=== PATIENT | male | born 1945 | race African-American/Black ===

== ENCOUNTER 2021-11-15 13:32 | Inpatient (IN) ==
[2021-11-15] MEDS ORDERED: Naloxone 0.4 MG/ML INJ IVP PRN (17:40)
[2021-11-15 21:15] LABS: BUN/Creatinine Ratio 6 (6-26); Blood Urea Nitrogen 5 mg/dL (8-23); Calcium 8.2 mg/dL (8.6-10.3); Carbon Dioxide 21 mEq/L (23-29); Chloride 88 mEq/L (98-107); Glucose 95 mg/dL (70-105); Osmolality,Calculated 239 (280-300); Potassium 3.5 mEq/L (3.5-5.1); Sodium 116 mEq/L (136-145)
[2021-11-15] MEDS ORDERED: 0.9 % Sodium Chloride 1,000 ML ONE (21:59)
[2021-11-15] MEDS: 0.9 % Sodium Chloride 1,000 ML IVC SCH (22:01)
[2021-11-16] MEDS: *HR* Heparin 5,000 UNIT/ML VIAL SQ SCH ×3 (01:10→16:35)
[2021-11-16 05:00] LABS: Basophils % 0.4 %; Eosinophils # 0.1 K/mcL (0.0-0.6); Eosinophils % 2.2 %; Hematocrit 28.9 % (37.5-50.1); Hemoglobin 10.3 g/dL (12.9-16.9); Immature Granulocytes % 0.2 % (0-4); Lymphocytes # 0.8 K/mcL (0.6-4.6); Lymphocytes % 17.6 %; Mean Corpuscular HGB Conc 35.6 g/dL (31.6-35.5); Mean Corpuscular Hemoglobin 30.7 pg (28.0-33.3); Mean Corpuscular Volume 86.3 fL (83.0-100.0); Mean Platelet Volume 8.8 fL (9.4-12.4); Monocytes # 0.5 K/mcL (0.0-1.3); Monocytes % 11.8 %; Neutrophils # 3.1 K/mcL (1.6-8.9); Platelet Count 260 K/mcL (140-400); Red Blood Count 3.35 M/mcL (4.19-5.50); Red Cell Distribution Width 11.6 % (11.5-14.5); Segmented Neutrophils % 67.8 %; White Blood Count 4.5 K/mcL (4.3-11.1)
[2021-11-16 05:17] LABS: BUN/Creatinine Ratio 8 (6-26); Blood Urea Nitrogen 5 mg/dL (8-23); Calcium 8.5 mg/dL (8.6-10.3); Carbon Dioxide 24 mEq/L (23-29); Chloride 88 mEq/L (98-107); Glucose 71 mg/dL (70-105); Osmolality,Calculated 242 (280-300); Potassium 3.5 mEq/L (3.5-5.1); Sodium 118 mEq/L (136-145)
[2021-11-16 13:35] LABS: BUN/Creatinine Ratio 10 (6-26); Blood Urea Nitrogen 7 mg/dL (8-23); Calcium 9.2 mg/dL (8.6-10.3); Carbon Dioxide 23 mEq/L (23-29); Chloride 89 mEq/L (98-107); Glucose 91 mg/dL (70-105); Osmolality,Calculated 248 (280-300); Potassium 3.6 mEq/L (3.5-5.1); Sodium 120 mEq/L (136-145)
[2021-11-16] MEDS: 0.9 % Sodium Chloride 1,000 ML IVC SCH (14:12)
[2021-11-16 17:21] LABS: BUN/Creatinine Ratio 10 (6-26); Blood Urea Nitrogen 7 mg/dL (8-23); Carbon Dioxide 24 mEq/L (23-29); Chloride 90 mEq/L (98-107); Glucose 77 mg/dL (70-105); Osmolality,Calculated 249 (280-300); Potassium 3.6 mEq/L (3.5-5.1); Sodium 121 mEq/L (136-145)
[2021-11-16 21:58] LABS: BUN/Creatinine Ratio 13 (6-26); Blood Urea Nitrogen 8 mg/dL (8-23); Calcium 8.7 mg/dL (8.6-10.3); Carbon Dioxide 25 mEq/L (23-29); Chloride 91 mEq/L (98-107); Glucose 74 mg/dL (70-105); Osmolality,Calculated 249 (280-300); Potassium 3.5 mEq/L (3.5-5.1); Sodium 121 mEq/L (136-145)
[2021-11-17] MEDS: *HR* Heparin 5,000 UNIT/ML VIAL SQ SCH ×4 (00:30→23:24)
[2021-11-17 01:21] LABS: BUN/Creatinine Ratio 12 (6-26); Blood Urea Nitrogen 7 mg/dL (8-23); Calcium 8.7 mg/dL (8.6-10.3); Carbon Dioxide 24 mEq/L (23-29); Chloride 90 mEq/L (98-107); Glucose 86 mg/dL (70-105); Osmolality,Calculated 249 (280-300); Potassium 3.3 mEq/L (3.5-5.1); Sodium 121 mEq/L (136-145)
[2021-11-17] MEDS ORDERED: 0.9 % Sodium Chloride 1,000 ML IVC SCH (05:45)
[2021-11-17 06:59] LABS: BUN/Creatinine Ratio 8 (6-26); Blood Urea Nitrogen 6 mg/dL (8-23); Carbon Dioxide 26 mEq/L (23-29); Chloride 90 mEq/L (98-107); Glucose 79 mg/dL (70-105); Osmolality,Calculated 251 (280-300); Potassium 3.4 mEq/L (3.5-5.1); Sodium 122 mEq/L (136-145)
[2021-11-17] MEDS: Cholecalciferol (D-3) 1,000 UNIT (25MCG) TABLET PO SCH (08:45)
[2021-11-17] MEDS: amLODIPine 5 MG TABLET PO SCH (08:49)
[2021-11-17] MEDS ORDERED: 0.9 % Sodium Chloride 1,000 ML IVC ONE (09:04)
[2021-11-17] MEDS ORDERED: Mirtazapine 15 MG TABLET PO SCH (21:00)
[2021-11-17] MEDS ORDERED: lisinopriL 20 MG TABLET PO SCH (21:00)
[2021-11-18 03:36] LABS: BUN/Creatinine Ratio 8 (6-26); Blood Urea Nitrogen 6 mg/dL (8-23); Calcium 8.8 mg/dL (8.6-10.3); Carbon Dioxide 27 mEq/L (23-29); Chloride 95 mEq/L (98-107); Glucose 75 mg/dL (70-105); Osmolality,Calculated 260 (280-300); Potassium 3.2 mEq/L (3.5-5.1); Sodium 127 mEq/L (136-145)
[2021-11-18 03:38] VITALS: TEMP 98.1
[2021-11-18] MEDS: amLODIPine 5 MG TABLET PO SCH ×3 (07:41→10:42)
[2021-11-18] MEDS: Cholecalciferol (D-3) 1,000 UNIT (25MCG) TABLET PO SCH (07:58)
[2021-11-18] MEDS: *HR* Heparin 5,000 UNIT/ML VIAL SQ SCH (07:59)
[2021-11-18 08:06] VITALS: BP 128/69; O2SAT 97
[2021-11-18] MEDS ORDERED: GuaiFENesin Liq 200 MG/10 ML UDC PO PRN (08:43)
[2021-11-18 10:07] VITALS: PULSE 63
== END 2021-11-18 11:46 | disposition home or self-care (01) | DRG 641 ==
LOC: 2NNU → SUATTDRO 17:40
PROVIDERS: ADMIT Internal Medicine; ATTEND Family Medicine